=== PATIENT | male | born 1990 | race Two or more races ===

== ENCOUNTER 2017-07-10 08:33 | Emergency (ER) | payer MEDICAID ==
[~2017-07-10] VITALS: Ht 182.9 cm; Wt 109.0 kg
[2017-07-10 08:34] VITALS: BP 154/84
== END 2017-07-10 09:45 | disposition left against medical advice (07) ==
LOC: ER 08:41
DX: F10.129 Alcohol abuse with intoxication, unspecified (principal); Z53.21 Procedure and treatment not carried out due to patient leaving prior to being seen by health care provider

== ENCOUNTER 2017-08-14 00:40 | Emergency (ER) | payer MEDICAID ==
[~2017-08-14] VITALS: Ht 182.9 cm; Wt 125.0 kg
[2017-08-14 01:44] LABS: HEMATOCRIT 36.7 % (42.0-52.0); HEMOGLOBIN 12.8 g/dL (14.0-18.0); MEAN CORPUSCULAR HEMOGLOBIN 29.2 pg (28.0-32.0); MEAN CORPUSCULAR VOLUME 83.8 fL (80.0-94.0); PLATELET 543 x1000/uL (130-400); RED BLOOD CELL COUNT 4.38 mill/uL (4.7-6.1); RED CELL DISTRIBUTION WIDTH 15.2 % (11.6-14.6)
[2017-08-14 01:52] LABS: CHLORIDE 97 mEq/L (98-107)
[2017-08-14] MEDS ORDERED: VANCOMYCIN 1,500 MG in DEXT 5% WATER 250 ML IV SCH ×2 (03:00→03:15)
[2017-08-14] MEDS ORDERED: VANCOMYCIN 1,500 MG in DEXT 5% WATER 250 ML IV NR (03:15)
[2017-08-14] MEDS ORDERED: VANCOMYCIN 1,500 MG in SODIUM CHLORIDE 0.9% 250 ML IV NR (03:15)
[2017-08-14 05:21] VITALS: BP 135/66
== END 2017-08-14 05:37 | disposition home or self-care (01) ==
LOC: ER 01:00
DX: L03.115 Cellulitis of right lower limb (principal); M79.89 Other specified soft tissue disorders; Z59.0 Homelessness
CPT/HCPCS: 36415; 80048; 83605; 85027; 87040; 93970; 96365; 96366; 99285; J3370; Z7610; J7050; J7060